=== PATIENT | male | born 1975 ===

== ENCOUNTER 2022-05-13 05:55 | Day surgery (SDC) | payer OTHER | END 2022-05-13 09:40 | disposition home or self-care (01) | LOC: AMB-ENDOS 05:55 | PROVIDERS: ATTEND Colon & Rectal Surgery | DX: K63.5 Polyp of colon (principal); Z86.010 Personal history of colon polyps; K64.1 Second degree hemorrhoids; Z20.822 Contact with and (suspected) exposure to COVID-19 ==